=== PATIENT | female | born 1985 | race Caucasian/White ===

== ENCOUNTER 2018-03-20 10:38 | Inpatient (IN) | payer OTHER ==
[2018-03-20 11:39] VITALS: BMI 45.1
[2018-03-20 12:01] LABS: RETICULOCYTES 1.86 % (0.5-1.5)
[2018-03-20 12:02] LABS: BASO % 0.5 % (0-2.0); EOS % 1.4 % (0-4.5); HEMATOCRIT 42.4 % (32.4-45.2); HEMOGLOBIN 13.9 GM/dL (10.7-15.3); LYMPH % 25.2 % (8-40); MCH 27.4 pg (25.7-33.7); MCHC 32.9 g/dl (32.0-36.0); MEAN CELL VOLUME 83.4 fl (80-96); MEAN PLT VOLUME 11.1 fl (7.5-11.1); MONO % 8.6 % (3.8-10.2); NEUT % 64.3 % (42.8-82.8); PLATELET COUNT 173 K/MM3 (134-434); RBC 5.08 M/mm3 (3.60-5.2); RDW 14.7 % (11.6-15.6); WHITE BLOOD COUNT 10.7 K/mm3 (4.0-10.0)
[2018-03-20] MEDS ORDERED: SODIUM PHOSPHATE/NA BIPHOS 133 ML ENEMA PR ONE (12:06)
[2018-03-20] MEDS ORDERED: AMPICILLIN - 2 GM in SODIUM CHLORIDE 100 ML IVPB ONE ×2 (12:09→12:13)
[2018-03-20 12:11] LABS: INR 0.91 (0.82-1.09); PROTHROMBIN TIME (PATIENT) 10.3 SEC (9.7-13.0)
[2018-03-20 12:14] LABS: ACTIVATED PTT 27.8 SECONDS (26.9-34.4)
[2018-03-20] MEDS ORDERED: ELECTROLYTE-148 SOLN 1,000 ML IV SCH (12:15)
[2018-03-20 12:18] LABS: ANION GAP 9 (8-16); CHLORIDE 108 mmol/L (98-107); CO2 22 mmol/L (21-32); CREATININE 0.6 mg/dL (0.55-1.02); GAMMA GLUTAMYL TRANSPEPTIDASE 17 U/L (5-85); GLUCOSE,RANDOM 71 mg/dL (74-106); POTASSIUM 4.4 mmol/L (3.5-5.1); SGOT/AST 26 U/L (15-37); SGPT/ALT 42 U/L (12-78); SODIUM 139 mmol/L (136-145); URIC ACID 4.9 mg/dL (2.6-7.2)
[2018-03-20 12:24] LABS: URINE APPEARANCE CLEAR; URINE BILIRUBIN NEGATIVE (<2.0 mg/dL); URINE COLOR LTYELLOW; URINE GLUCOSE (UA) NEGATIVE (NEGATIVE); URINE KETONE NEGATIVE (NEGATIVE); URINE LEUK ESTERASE TRACE (NEGATIVE); URINE NITRITE NEGATIVE (NEGATIVE); URINE PROTEIN NEGATIVE (NEGATIVE); URINE UROBILINOGEN NEGATIVE mg/dL (0.2-1.0)
[2018-03-20] MEDS ORDERED: DINOPROSTONE 10 MG VAGINAL SUPPOSITORY VG ONE (12:30)
[2018-03-20 12:37] LABS: EPI CELLS RARE /HPF (FEW)
--- NOTE | 2018-03-20 12:39 | HP ---
Past Medical History - Primary Care Physician PCP:: Millie Matt - Admission Chief Complaint: 32 yrs , 37 weeks iup , gdm diet controlled with high BP , possible preclempsia is admitted for delivery as per recommndation from [facility]. 03/20/18 Sono 37 weeks GET 11.0, BPP 8/8. BP recorded in his office 170/ 108 & 154/105 , History of Present Illness: PNC at , [facility] Wt gain 15 lbs work up : 08/26/17 Apos, Rpr nr, Hbsag neg, Rubella pos, Quantiferon neg , , Hiv neg , gc/ct neg , h/h 12.8/38.0, plt 215 urine culture >100,000 gbs pos, treated with po Ampicillin pap LGSIl/ , followed by colposcopy , gc/ct neg 11/2107 base line 24 hr urine protein 105, uric acid 2.8 mg . AFP neg 01/27/18 1 hr gtt 140, Quantiferon neg, Rpr nr, 02/06/18 3 hr Gtt 100/232/206/74 03/11/18 gc/ct neg, GBS pos, , Hiv nr, cbc h/h 14.1/42.7 plt 177 BP are recorded at 12 wks , subsequently 163/100, 157/79 , 166/92. last 2 weeks BP are high diastolic 160/102, , 03/18/18 urine protein 2+ , she was placed on po Labetalol 100 mg bid today in [facility] off 170/106 , pt is asymptomatic for headache, blurred vision , epigastric pain she submitted 24 hr urine proten . 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 No: Seizure Cardiovascular: Yes: HTN (possible chr HTN , HTN noted in 1st trimester) Pulmonary: Yes: Asthma (in childhood, none for last 10 years . no meds) Gastrointestinal: Yes: Constipation. No: Gastritis, GERD Hepatobiliary: No: Cholelithiasis Renal/: Yes: UTI (treated during pregn with ampicillin , GBS bacteriuria pos) ...: 2 ...Para: 1 (02/28/2012 39.3 weeks , 7'3"Induction due to preclempsia at [facility]) ...Term: 1 ...LMP: 05/31/17 ... Weeks Gestation by Dates: 37 ...EDC by Dates: 04/10/18 ...EDC by Sono: 04/10/18 Heme/Onc: No: Anemia Infectious Disease: Yes: STD's (past h/o chlamydia treated). No: AIDS, HIV, Tuberculosis Endocrine: Yes: Other (h/o GDM current pregn diet controlled). No: Diabetes Mellitus, Hyperthyroidism, Hypothyroidism - Past Surgical History Past Surgical History: Yes: None Hx Myomectomy: No Hx Transabdominal Cerclage: No - Smoking History Smoking history: Never smoked Have you smoked in the past 12 months: No - Alcohol/Substance Use Hx Alcohol Use: No Home Medications - Allergies Allergies/Adverse Reactions: Allergies Allergy/AdvReac Type Severity Reaction Status Date / Time No Known Allergies Allergy Verified 03/15/18 16:33 - Home Medications Home Medications: Ambulatory Orders Pnv No.95/Ferrous Fum/Folic AC [ Vitamin Tablet] 1 each PO DAILY Labetalol HCl [Normodyne -] 100 mg PO BID #21 tablet 03/12/18 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 - Maternity Vital Signs: Vital Signs Temperature 98.2 F 03/20/18 11:26 Pulse Rate 79 03/20/18 11:26 Respiratory Rate 20 03/20/18 11:26 Blood Pressure 143/97 03/20/18 11:26 O2 Sat by Pulse Oximetry (%) Selected Entries 03/20/18 03/20/18 11:26 13:00 Temperature 98.6 F Pulse Rate 74 Blood Pressure 156/86 Weight 255 lb Constitutional: Yes: Well Nourished, Obese Eyes: Yes: WNL HENT: Yes: WNL, Normocephalic Neck: Yes: WNL Cardiovascular: Yes: WNL Lungs: Clear to auscultation Breast(s): Yes: WNL. No: Mass - Abdominal Exam/OB Fundal Height: 36 Number of Fetuses: Single Presentation: Vertex Contractions: No Monitor Mode: External Heart Rate (range): 150 Heart Rate Location: Midline Category: I Accelerations: Uniform Decelerations: None - Vaginal Exam/OB Vaginal Bleediing: No Dilatation (cm): 2 Effacement (%): 60 Amniotic Membrane Status: Intact Presentation: Vertex/Position Station: -3 - 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 Musculoskeletal: Yes: WNL Extremities: Yes: WNL, Internal Rotation. No: Calf Tenderness Edema: LLE: 1+, RLE: 1+ Deep Tendon Reflex Grade: Normal +2 ...Motor Strength: WNL Psychiatric: Yes: WNL, Alert - Labs Lab Results: CBC, BMP 03/20/18 11:35 03/20/18 11:35 Laboratory Tests 03/20/18 03/20/18 03/20/18 11:15 11:35 11:35 WBC Hgb Hct Plt Count 183 Neutrophils % Lymphocytes % PT with INR INR PTT (Actin FS) Sodium 139 Potassium 4.4 Chloride 108 H Carbon Dioxide 22 BUN 13 Creatinine Pending POC Glucometer Random Glucose 71 L Uric Acid 4.9 GGT 17 D AST 26 ALT 42 Urine Protein 03/20/18 03/20/18 03/20/18 11:35 11:35 11:45 WBC 10.7 H Hgb 13.9 Hct 42.4 Plt Count Neutrophils % 64.3 Lymphocytes % 25.2 PT with INR 10.30 INR 0.91 PTT (Actin FS) 27.8 Sodium Potassium Chloride Carbon Dioxide BUN Creatinine POC Glucometer Random Glucose Uric Acid GGT AST ALT Urine Protein Negative 03/20/18 12:00 WBC Hgb Hct Plt Count Neutrophils % Lymphocytes % PT with INR INR PTT (Actin FS) Sodium Potassium Chloride Carbon Dioxide BUN Creatinine POC Glucometer 68 Random Glucose Uric Acid GGT AST ALT Urine Protein Laboratory Tests 03/20/18 03/20/18 03/20/18 11:15 11:35 12:40 Urine Total Volume 600 Creatinine Clearance 134 RPR Titer Nonreactive Blood Type A POSITIVE Hemorrhage Risk Assessment - Risk Factors Medium Risk Factors: Yes: Obesity (BMI >40) Risk Score: 1 Risk Level: Medium Risk Problem List - Problems (1) 37 weeks gestation of Code(s): Z3A.37 - 37 WEEKS GESTATION OF (2) Chronic hypertension affecting Code(s): O10.919 - UNSP PRE-EXISTING HTN COMP , UNSP TRIMESTER (3) Diet controlled gestational diabetes mellitus (GDM) in third trimester Code(s): O24.410 - GESTATIONAL DIABETES MELLITUS IN , DIET CONTROLLED (4) Morbid obesity with BMI of 45.0-49.9, adult Code(s): E66.01 - MORBID (SEVERE) OBESITY DUE TO EXCESS CALORIES; Z68.42 - BODY MASS INDEX (BMI) 45.0-49.9, ADULT Assessment/Plan 32 yrs , 37 weeks , with ac exacerbation of BP , on chr HTN , on po labetalol , suspect preclempsia Plan cervidil induction of labor started at 11.55AM trial vaginal delivery bgm monitoring q 6h bp on po labetalol 24 hr urine protein pending gbs prophylaxis with IV Ampiciilin
[2018-03-20 12:50] LABS: BLOOD UREA NITROGEN 13 mg/dL (7-18)
[2018-03-20] MEDS ORDERED: LABETALOL HCL 200 MG TABLET (FP) PO PRN (13:21)
[2018-03-20] MEDS ORDERED: LABETALOL HCL 200 MG TABLET (FP) PO SCH (14:07)
[2018-03-20 14:19] LABS: CREATININE 0.6 mg/dL (0.55-1.02)
[2018-03-20] MEDS ORDERED: AMPICILLIN SODIUM 2 GM VIAL ONE (14:23)
[2018-03-20] MEDS ORDERED: AMPICILLIN - 1 GM in SODIUM CHLORIDE 100 ML IVPB SCH (19:00)
[2018-03-20] MEDS: LABETALOL HCL 200 MG TABLET (FP) PO SCH (19:20)
[2018-03-20] MEDS ORDERED: LABETALOL HCL 200 MG TABLET (FP) ONE (19:21)
[2018-03-20] MEDS ORDERED: BUTORPHANOL TARTRATE 1 MG/ML VIAL ONE ×2 (19:29)
[2018-03-20] MEDS ORDERED: BUTORPHANOL TARTRATE 1 MG/ML VIAL IVPUSH ONE (19:32)
[2018-03-20] MEDS ORDERED: PROMETHAZINE HCL 25 MG/1 ML VIAL IVPB ONE (19:32)
--- NOTE | 2018-03-20 19:37 | PN ---
Progress Note, Labor Vaginal Exam #1 Labor Exam Date: 03/20/18 Labor Exam Time: 19:30 Heart Rate (range): 130 Dilatation: 7 Effacement (%): 100 Amniotic Membrane Status: Intact Presentation: Vertex/Position (memb bulging , pp high unable to feel) Station: -3 Remarks: uc q2-4 min fhr 140, cat-1 rx stadol2 mg + phenrgan 25 mg iv stat Selected Entries 03/20/18 03/20/18 03/20/18 14:00 15:00 16:00 Temperature Pulse Rate Blood Pressure 161/97 136/90 153/88 03/20/18 03/20/18 03/20/18 17:00 18:00 19:00 Temperature 98.3 F Pulse Rate 72 74 71 Blood Pressure 138/84 140/88 158/95 bgm 85 after lunch Vaginal Exam #2 Labor Exam Date: 03/20/18 Labor Exam Time: 19:52 Heart Rate (range): 120 Dilatation: 10 Effacement (%): 100 Amniotic Membrane Status: Ruptured (AROM clear, large amount) Presentation: [place] Breech Station: -2 Remarks: pt pushing 19.40 hr fully dilated, , cervidil removed by RN
[2018-03-20] MEDS ORDERED: PROMETHAZINE HCL 25 MG/1 ML VIAL ONE (19:38)
[2018-03-20] MEDS ORDERED: OXYTOCIN 20 UNITS in 0.9% NS 20 UNIT/1,000 ML INFUS.BAG IV ONE ×2 (19:48→21:23)
[2018-03-20] MEDS ORDERED: LIDOCAINE HCL 1% PRESERVATIVE FREE - 30ML VIAL ONE (19:48)
[2018-03-20] MEDS: OXYTOCIN 20 UNITS in 0.9% NS 20 UNIT/1,000 ML INFUS.BAG IV SCH ×2 (19:55→21:30)
[2018-03-20] MEDS ORDERED: METHYLERGONOVINE MALEATE 0.2 MG/1 ML AMP IM PRN (20:04)
[2018-03-20] MEDS ORDERED: IBUPROFEN 600 MG TABLET (FP) PO PRN (20:04)
[2018-03-20] MEDS ORDERED: BENZOCAINE 28 GM HEMORRHOIDAL OINTMENT TP PRN (20:04)
[2018-03-20] MEDS ORDERED: BENZOCAINE 20% 57 GM BOTTLE TP PRN (20:04)
[2018-03-20] MEDS ORDERED: oxyCODONE HCL 5 MG TABLET PO PRN (20:04)
[2018-03-20] MEDS ORDERED: WITCH HAZEL 50% (TUCKS) 40 PAD/JAR PAD TP PRN (20:04)
[2018-03-20] MEDS ORDERED: BISACODYL 10 MG SUPP.RECT RC PRN (20:04)
--- NOTE | 2018-03-20 20:29 | PN ---
Delivery - Delivery Vaginal Delivery: Breech (luisito breech , RST delivered followed by body , then ant arm , followed by posterior arm head delievered , cord around neck x1 . baby girl. cord blood , collected, cord segment sent for cord gas) Episiotomy/Laceration: None EBL (cc): 250 Delivery, Single - Stages of Labor Date 1st Stage Initiatied: 03/20/18 Time 1st Stage Initiated: 15:00 Date 2nd Stage Initiated: 03/20/18 Time 2nd Stage Initiated: 19:40 Date of Delivery: 03/20/18 Time of Delivery: 19:52 Date Placenta Delivered: 03/20/18 Time Placenta Delivered: 19:53 Placenta: Yes: Spontaneous, Uterine Exploration - Condition of Infant Infant Gender: Female Weight: 5 lb 4 oz Position: Right, SA (Lasha barajas, delivery in rST position , cord around neck x1) Total Hours ROM (Hrs/Mins): 8 min - 1 Minute Total Score: 8 5 Minutes Total Score: 9 - Feeding Plan Initial Plan: Elected not to breastfeed exclusively throughout hospitalization Remarks - Remarks Remarks: 32 yrs , 37 weeks chr htn, ac exacerbation, suspected l preclempsia . GBS pos , RX IV ampicillin x 2 doses induction of labor with cervidil 03/20/18 one dose of iv stadol + phenrgan for labor analgesia , Intrapartum course uneventful BP manage with po labetlol 200 mg q 6h GDM diet controlled, , monitor BGM
[2018-03-20 20:49] LABS: VENOUS PC02 49.2 mmHg (38-52); VENOUS PH 7.29 (7.32-7.42)
[2018-03-20 20:52] LABS: VENOUS PO2 16.6 mmHg (28-48)
[2018-03-21] MEDS: LABETALOL HCL 200 MG TABLET (FP) PO SCH ×3 (01:38→13:29)
--- NOTE | 2018-03-21 06:39 | PN ---
Progress Note (short form) - Note Progress Note: ppd 1 doing well, no c/o ,no excess vaginal bleeding CBC, BMP 03/20/18 11:35 03/20/18 11:35 Last Vital Signs Temp Pulse Resp BP Pulse Ox 98.2 F 77 18 145/82 03/21/18 06:00 03/21/18 06:00 03/21/18 06:00 03/21/18 06:00 abdomen soft, no distension, no cva uterus firm, non tender lochia mild no calf tenderness plan ambulate, cbc
[2018-03-21] MEDS: FERROUS SO4 325 MG TABLET (FP) PO SCH ×2 (07:31→17:03)
[2018-03-21] MEDS: ACETAMINOPHEN 325 MG TABLET (FP) PO PRN ×2 (07:34→20:15)
[2018-03-21 07:45] LABS: BASO % 0.5 % (0-2.0); EOS % 0.6 % (0-4.5); HEMATOCRIT 40.1 % (32.4-45.2); HEMOGLOBIN 13.2 GM/dL (10.7-15.3); LYMPH % 22.5 % (8-40); MCH 27.4 pg (25.7-33.7); MCHC 32.8 g/dl (32.0-36.0); MEAN CELL VOLUME 83.5 fl (80-96); MEAN PLT VOLUME 10.7 fl (7.5-11.1); MONO % 7.4 % (3.8-10.2); PLATELET COUNT 153 K/MM3 (134-434); RDW 14.4 % (11.6-15.6); WHITE BLOOD COUNT 12.3 K/mm3 (4.0-10.0)
[2018-03-21] MEDS: PRENATAL VITAMINS W/ FOLIC ACID TABLET (FP) PO SCH (09:22)
--- NOTE | 2018-03-21 14:30 | CONSULT ---
Consult - text type - Consultation Consultation Note: Renal consult for hypertension This is a 32 year old woman who presented at 37 weeks gestation with elevated BP fom OB clinic now s/p vaginal dilivery with hypertension. Pt was on Labetalol BID for 1 week prior to this admission. No CELIS, Chest pain, SOB, N/ V. Pt was told that she had preeclampsia in the past. Mother has CHF and at age 55. Gained about 15 lbs during . PMhx: as above Allergies: NKDA Family hx: Mother had CHF, at age 55 Social Hx: No T/A/D ROS: as per HPI Home Medications Medication Instructions Recorded Pnv No.95/Ferrous Fum/Folic AC 1 each PO DAILY 03/11/18 [ Vitamin Tablet] Labetalol HCl [Normodyne -] 100 mg PO BID #21 tablet 03/12/18 Vital Signs Temperature 99.2 F 03/21/18 13:25 Pulse Rate 72 03/21/18 13:25 Respiratory Rate 20 03/21/18 13:25 Blood Pressure 141/79 03/21/18 13:25 O2 Sat by Pulse Oximetry (%) Intake & Output 03/18/18 03/19/18 03/20/18 03/21/18 23:59 23:59 23:59 23:59 Intake Total 600 Balance 600 Weight 115.666 kg NAD No JVD RRR No LE edema CBC, BMP 03/21/18 07:10 03/20/18 11:35 Current Medications Acetaminophen (Tylenol -) 650 mg PO Q3H PRN PRN Reason: PAIN LEVEL 1-5 Last Admin: 03/21/18 07:34 Dose: 650 mg Benzocaine (Americaine 20% [place] -) 1 spray TP PRN PRN PRN Reason: PAIN Benzocaine (Americaine Ointment -) 1 applic TP PRN PRN PRN Reason: PAIN Bisacodyl (Dulcolax Suppository -) 10 mg RC PRN PRN PRN Reason: CONSTIPATION Ferrous Sulfate (Feosol -) 325 mg PO BIDWM [facility] Last Admin: 03/21/18 07:31 Dose: 325 mg Oxytocin/Sodium Chloride (Normal Saline+20 Units Oxytocin -) 20 unit in 1,000 mls @ 125 mls/hr IV ASDIR [facility] Last Admin: 05/31/18 21:30 Dose: 125 mls/hr Labetalol HCl (Normodyne -) 200 mg PO Q6H [facility] Last Admin: 03/21/18 13:29 Dose: 200 mg Methylergonovine Maleate (Methergine Injection -) 0.2 mg IM Q4H PRN PRN Reason: EXCESSIVE BLEEDING (L&D) Oxycodone HCl (Roxicodone -) 5 mg PO Q6H PRN PRN Reason: PAIN LEVEL 7 - 10 Multivit/Folic Acid/Iron ( Vitamins (Sjr) -) 1 tab PO DAILY [facility] Last Admin: 03/21/18 09:22 Dose: 1 tab Senna/Docusate Sodium (Pericolace -) 2 tablet PO HS PRN PRN Reason: CONSTIPATION Witch Mignon/Glycerin (Tucks Pads -) 1 pad TP PRN PRN PRN Reason: PAIN 32 year old woman who presented at 37 weeks gestation with elevated BP fom OB clinic now s/p vaginal dilivery with hypertension. Pt was on Labetalol BID for 1 week prior to this admission. # Hypertension #Preeclampsia UA showed no protein but 24 hour urine protein was collected results as pending no LFT or platelet abnormalities to indicate HELLP syndrome Low salt diet, avoid nsaids for pain control Continue Labetalol 200mg Q6h PRN for SBP > 140 or DBP > 90 pain control thank you Will follow Rick Johnson DO
[2018-03-21] MEDS: LABETALOL HCL 200 MG TABLET (FP) PO PRN (20:15)
[2018-03-21] MEDS: OXYTOCIN 20 UNITS in 0.9% NS 20 UNIT/1,000 ML INFUS.BAG IV SCH (20:16)
[2018-03-21] MEDS ORDERED: SENNOSIDES/DOCUSATE COMBO (SENNA PLUS) TABLET (UD) PO PRN (22:00)
[2018-03-22] MEDS: ACETAMINOPHEN 325 MG TABLET (FP) PO PRN (03:49)
[2018-03-22] MEDS: LABETALOL HCL 200 MG TABLET (FP) PO PRN ×2 (05:44→12:19)
[2018-03-22] MEDS: FERROUS SO4 325 MG TABLET (FP) PO SCH (08:00)
--- NOTE | 2018-03-22 08:04 | DS ---
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 Vital Signs: Vital Signs Temperature 98.6 F 03/21/18 20:15 Pulse Rate 63 03/22/18 05:45 Respiratory Rate 18 03/22/18 05:45 Blood Pressure 143/91 03/22/18 05:45 O2 Sat by Pulse Oximetry (%) Constitutional: Yes: Well Nourished Eyes: Yes: Conjunctiva Clear HENT: Yes: Atraumatic Neck: Yes: Supple Cardiovascular: Yes: Regular Rate and Rhythm Respiratory: Yes: Regular Gastrointestinal: Yes: Normal Bowel Sounds Pelvis: Yes: WNL External Genitalia: Yes: Normal Vaginal Exam: Yes: Normal Cervix: Yes: Normal Uterus: Yes: Firm ....Post : Yes: Uterus firm, Moderate lochia serosa Breast(s): Yes: WNL Musculoskeletal: Yes: WNL Extremities: Yes: WNL Neurological: Yes: Alert, Oriented ...Motor Strength: WNL Psychiatric: Yes: Alert, Oriented Labs: CBC, BMP 03/21/18 07:10 03/20/18 11:35 Delivery - Delivery Vaginal Delivery: Breech (luisito breech , RST delivered followed by body , then ant arm , followed by posterior arm head delievered , cord around neck x1 . baby girl. 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: No Infant Gender: Female Weight: 5 lb 4 oz Position: Right, SA (Lasha barajas, delivery in rST position , cord around neck x1) Total Hours ROM (Hrs/Mins): 8 min - 1 Minute Total Score: 8 5 Minutes Total Score: 9 - [place] Feeding Plan Initial Plan: Elected not to breastfeed exclusively throughout hospitalization Discharge Summary Reason For Visit: LABOR Current Active Problems 37 weeks gestation of (Acute) Chronic hypertension affecting (Acute) Diet controlled gestational diabetes mellitus (GDM) in third trimester (Acute) Morbid obesity with BMI of 45.0-49.9, adult (Acute) Procedures: Principal: Normal vaginal delivery Hospital Course: care Customer Facilities Supervisor consulted due to chronic hypertension Patient has been on Labetalol during hospital stay Condition: Stable - Instructions Diet, Activity, Other Instructions: Post Instructions DIET: Continue good diet high in protein, calcium, and iron rich foods. Drink at least eight (8) glasses of water daily in addition to other fluids. ___ lo salt diet ___ LoCarb/Low Calorie Diet ___ Diabetic Diet MEDICATIONS: Continue vitamins and iron as previously directed. Motrin and Tylenol may be taken for minor discomfort. ACTIVITY: Mild to moderate exercise may be started in two (2) weeks. Take frequent rest periods. Resume normal activity after six (6) week check up. WOUND CARE OF OPERATIVE SITE: Continue use of perineal bottle until vaginal discharge stops. Keep area clean. Shower daily. Keep abdominal wound dry. Report any drainage or redness to physician. Tub baths, tampons and douches are not permitted for [address] Breast feeding & or Bottle feeding BREAST CARE: (For those that are not breast feeding): If engorgement occurs: Wear tight fitting bra. Take Tylenol or Motrin for pain. Apply cold packs (ice in bags to each breast ) FAMILY PLANNING: There are many control alternatives to pursue and they should be discussed at your first office visit. You may resume sexual activity after your six (6) week check up. (Remember, breast feeding is not a contraceptive) NEXT PHYSICIAN APPOINTMENT: Be certain to call for a six (6) week appointment, unless otherwise directed. check bgm twicw a week fasting oce & post prandial after 3 months do 75 gm GTT with your PCP Follow for Hypertension with Dr Johnson [facility] or got to Emergency Dept if you have any of the following: Heavy vaginal bleeding Painful urination Leg pain Unusual odor noted to vaginal bleeding High fever Red streaking noted on breast Referrals: Millie Matt MD [Staff Physician] - Disposition: HOME - Home Medications Comprehensive Discharge Medication List: Ambulatory Orders Pnv No.95/Ferrous Fum/Folic AC [ Vitamin Tablet] 1 each PO DAILY Labetalol HCl [Normodyne -] 100 mg PO BID #21 tablet 03/12/18 Acetaminophen [Tylenol .Regular Strength -] 650 mg PO Q3H PRN tablet 03/21/18 Vitamins (Sjr) - 1 tab PO DAILY tablet 03/21/18
[2018-03-22 08:33] VITALS: BP 152/92; PULSE 65; TEMP 97.9
[2018-03-22] MEDS: PRENATAL VITAMINS W/ FOLIC ACID TABLET (FP) PO SCH (09:28)
--- NOTE | 2018-03-22 11:28 | PN ---
Progress Note (short form) - Note Progress Note: Renal follow up for hypertension Pt seen and examined at the bedside no acute complaints no CELIS, CP, SOB, Abd pain required labetalol last night and this am Vital Signs Temperature 97.9 F 03/22/18 08:32 Pulse Rate 65 03/22/18 08:32 Respiratory Rate 18 03/22/18 08:32 Blood Pressure 152/92 03/22/18 08:32 O2 Sat by Pulse Oximetry (%) Intake & Output 03/19/18 03/20/18 03/21/18 03/22/18 23:59 23:59 23:59 23:59 Intake Total 600 Balance 600 Weight 115.666 kg NAD Trace LE edema CBC, BMP 03/21/18 07:10 03/20/18 11:35 Current Medications Acetaminophen (Tylenol -) 650 mg PO Q3H PRN PRN Reason: PAIN LEVEL 1-5 Last Admin: 03/22/18 03:49 Dose: 650 mg Benzocaine (Americaine 20% [place] -) 1 spray TP PRN PRN PRN Reason: PAIN Benzocaine (Americaine Ointment -) 1 applic TP PRN PRN PRN Reason: PAIN Bisacodyl (Dulcolax Suppository -) 10 mg RC PRN PRN PRN Reason: CONSTIPATION Ferrous Sulfate (Feosol -) 325 mg PO BIDWM [facility] Last Admin: 03/22/18 08:00 Dose: 325 mg Labetalol HCl (Normodyne -) 200 mg PO Q6H PRN PRN Reason: HYPERTENSION Last Admin: 03/22/18 05:44 Dose: 200 mg Methylergonovine Maleate (Methergine Injection -) 0.2 mg IM Q4H PRN PRN Reason: EXCESSIVE BLEEDING (L&D) Oxycodone HCl (Roxicodone -) 5 mg PO Q6H PRN PRN Reason: PAIN LEVEL 7 - 10 Multivit/Folic Acid/Iron ( Vitamins (Sjr) -) 1 tab PO DAILY [facility] Last Admin: 03/22/18 09:28 Dose: 1 tab Senna/Docusate Sodium (Pericolace -) 2 tablet PO HS PRN PRN Reason: CONSTIPATION Last Admin: 03/21/18 20:18 Dose: 2 tablet Witch Mignon/Glycerin (Tucks Pads -) 1 pad TP PRN PRN PRN Reason: PAIN 32 year old woman who presented at 37 weeks gestation with elevated BP fom OB clinic now s/p vaginal dilivery with hypertension. Pt was on Labetalol BID for 1 week prior to this admission. # Hypertension #Preeclampsia 24 hour urine collection results pending BP moderately controlled continue Labetalol 200mg Q6h Q12 low salt diet at home to follow up in 2-3 weeks as outpatient for BP monitoring Rick Johnson DO
== END 2018-03-22 13:10 | disposition home or self-care (01) | DRG 560 ==
LOC: JDEL 10:38 → JLDR 11:15 → J3W 21:28
PROVIDERS: ADMIT Obstetrics & Gynecology; ATTEND Obstetrics & Gynecology
PROC: 10E0XZZ Delivery of Products of Conception, External Approach (ICD-10-PCS; principal; 2018-03-20)
DX: O16.4 Unspecified maternal hypertension, complicating childbirth (principal); O24.420 Gestational diabetes mellitus in childbirth, diet controlled; O99.214 Obesity complicating childbirth; E66.01 Morbid (severe) obesity due to excess calories; Z68.42 Body mass index [BMI] 45.0-49.9, adult; O69.81X0 Labor and delivery complicated by cord around neck, without compression, not applicable or unspecified; O32.1XX0 Maternal care for breech presentation, not applicable or unspecified; O14.94 Unspecified pre-eclampsia, complicating childbirth; Z3A.37 37 weeks gestation of pregnancy; Z37.0 Single live birth
CPT/HCPCS: 36415; 59409; 80048; 81003; 81015; 82575; 82803; 82962; 82977; 83010; 84156; 84166; 84450; 84460; 84550; 85025; 85032; 85044; 85610; 85730; 86593; 86850; 86900; 86901

== ENCOUNTER 2019-06-12 21:17 | Emergency (ER) | payer SELFPAY ==
[2019-06-12 21:26] VITALS: BMI 40.7
[2019-06-12] MEDS ORDERED: ACETAMINOPHEN 325 MG TABLET (FP) PO ONE (21:53)
[2019-06-12] MEDS ORDERED: ACETAMINOPHEN 325 MG TABLET (FP) ONE (21:58)
--- NOTE | 2019-06-12 22:05 | PDOC ---
History of Present Illness - General Chief Complaint: Headache Stated Complaint: HEADACHE Time Seen by Provider: 06/12/19 21:43 History Source: Patient Exam Limitations: Clinical Condition - History of Present Illness Initial Comments: 06/12/19 22:10 Patient with no significant past medical history present with complaint of 3 day history of persistent dry cough, nasal congestion, postnasal drip and runny nose. Patient reported headache to of head and heaviness behind bilateral eyes upon wake this morning. 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 Denies weakness or feeling of imbalance. Denies any other symptoms Timing/Duration: reports: other (3 days) Past History - Past Medical History Allergies/Adverse Reactions: Allergies Allergy/AdvReac Type Severity Reaction Status Date / Time No Known Allergies Allergy Verified 03/15/18 16:33 Home Medications: Ambulatory Orders Pnv No.95/Ferrous Fum/Folic AC [ Vitamin Tablet] 1 each PO DAILY Labetalol HCl [Normodyne -] 100 mg PO BID #21 tablet 03/12/18 Acetaminophen [Tylenol .Regular Strength -] 650 mg PO Q3H PRN tablet 03/21/18 Vitamins (Sjr) - 1 tab PO DAILY tablet 03/21/18 Azithromycin [Zithromax Tri-John (3 DAYS) -] 500 mg PO DAILY #3 tablet 06/12/19 Benzonatate [Tessalon Pearls -] 100 mg PO TID PRN #21 capsule 06/12/19 Ipratropium [place] 2 spray NS BID PRN 5 Days #1 spray 06/12/19 Montelukast Sodium [Singulair] 10 mg PO DAILY #7 tablet 06/12/19 Asthma: No Cancer: No Cardiac Disorders: No Diabetes: Yes HTN: Yes Seizures: No Thyroid Disease: No - Suicide/Smoking/Psychosocial Hx Smoking History: Never smoked Have you smoked in the past 12 months: No Hx Alcohol Use: No Drug/Substance Use Hx: No Hx Substance Use Treatment: No Neuro Specific PMHX - Complaint Specific PMHX Glaucoma: No Herniated Disk: No Laminectomy: No Migraine: No Multiple Sclerosis: No Neuropathy: No TIA: No Review of Systems - Review of Systems Able to Perform ROS?: Yes Is the patient limited Wolof proficient: No Constitutional: No: Chills, Fever, Malaise, Weakness HEENTM: Yes: Symptoms Reported, See HPI, Recent change in vision (pressure being eyes), Nose Congestion. No: Eye Pain, Blurred Vision, Tearing, Double Vision, Cataracts, Ear Pain, Ocular Prothesis, Ear Discharge, Nose Pain, Tinnitus, Nose Bleeding, Hearing Loss, Throat Pain, Throat Swelling, Mouth Pain , Dental Problems, Difficulty Swallowing, Mouth Swelling, Other Respiratory: Yes: Symptoms reported, See HPI, Cough. No: Orthopnea, Shortness of Breath, SOB with Exertion, SOB at Rest, Stridor, Wheezing, Productive cough, Hemoptysis, Other Cardiac (ROS): No: Symptoms Reported, See HPI, Chest Pain, Edema, Irregular Heart Rate, Lightheadedness, Palpitations, Syncope, Chest Tightness, Other ABD/GI: No: Nausea, Vomiting Musculoskeletal: No: Symptoms Reported Integumentary: No: Symptoms Reported Neurological: Yes: Symptoms reported, See HPI, Headache (frontal headache). No : Numbness, Paresthesia, Pre-Existing Deficit, Weakness, Unsteady Gait, Ataxia, Dizziness All Other Systems: Reviewed and Negative *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 - Vital Signs Last Vital Signs Temp Pulse Resp BP Pulse Ox 98.1 F 85 20 140/85 99 06/12/19 21:22 06/12/19 21:22 06/12/19 21:22 06/12/19 21:22 06/12/19 21:22 - 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 Comments: 06/12/19 22:08 GENERAL: Well developed, well nourished. Awake and alert. No acute distress. HEENT: Moderate tenderness to bilateral maxillary and frontal sinuses. Bilateral nasal congestion. Normocephalic, atraumatic. PERRLA, EOMI. No conjunctival pallor. Sclera are non-icteric. Moist mucous membranes. Oropharynx is clear. NECK: Supple. Full ROM. No JVD. Carotid pulses 2+ and symmetric, without bruits. No thyromegaly. No lymphadenopathy. CARDIOVASCULAR: Regular rate and rhythm. No murmurs, rubs, or gallops. Distal pulses are 2+ and symmetric. PULMONARY: No evidence of respiratory distress. Lungs clear to auscultation bilaterally. No wheezing, rales or rhonchi. ABDOMINAL: Soft. Non-tender. Non-distended. No rebound or guarding. No organomegaly. Normoactive bowel sounds. MUSCULOSKELETAL Normal range of motion at all joints. No bony deformities or tenderness. SKIN: Warm and dry. Normal capillary refill. No rashes. NEUROLOGICAL: Alert, awake, appropriate. Cranial nerves 2-12 intact. No motor deficits in the in face, upper extremities and lower extremities. Normal speech. Toes are down-going bilaterally. Gait is normal without ataxia. PSYCHIATRIC: Cooperative. Good eye contact. Appropriate mood and affect. General Appearance: Yes: Nourished, Appropriately Dressed. No: Apparent Distress Medical Decision Making - Medical Decision Making 06/12/19 22:16 Patient with no significant past medical history present with complaint of 3 day history of persistent dry cough, nasal congestion, postnasal drip and runny nose. Patient reported headache to of head and heaviness behind bilateral eyes upon wake this morning. 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 Denies weakness or feeling of imbalance. Denies any other symptoms Clinical exam significant for moderate tenderness to bilateral maxillary and frontal sinus with nasal congestion bilateral otherwise unremarkable with normal neuro exam and normal cardio and lung exam. Symptoms likely sinusitis which URI versus less likely neurogenic symptoms. Patient with normal neuro exam and well-looking in no acute distress. Patient is stable for discharge on Tessalon Perles for cough and Atrovent nasal spray with Singulair for nasal congestion and sinusitis with strict follow-up. Patient advised to increase fluid intake. Patient is stable for discharge *DC/Admit/Observation/Transfer Diagnosis at time of Disposition: URI (upper respiratory infection) Qualifiers: URI type: unspecified URI Qualified Code(s): J06.9 - Acute upper respiratory infection, unspecified Sinusitis Qualifiers: Sinusitis location: frontal Chronicity: acute Recurrence: non-recurrent Qualified Code(s): J01.10 - Acute frontal sinusitis, unspecified - Discharge Dispostion Disposition: HOME Condition at time of disposition: Stable Decision to Admit order: No - Prescriptions Prescriptions: Azithromycin [Zithromax Tri-John (3 DAYS) -] 500 mg PO DAILY #3 tablet Benzonatate [Tessalon Pearls -] 100 mg PO TID PRN #21 capsule PRN Reason: Cough Ipratropium [place] 2 spray NS BID PRN 5 Days #1 spray PRN Reason: nasal congestion Montelukast Sodium [Singulair] 10 mg PO DAILY #7 tablet - Referrals Referrals: Román Jones [Primary Care Provider] - - Patient Instructions Printed Discharge Instructions: DI for Sinusitis, DI for Sinus Headache Additional Instructions: Take medications as prescribed. Increase fluid intake. Follow-up with primary care as needed - Post Discharge Activity
[2019-06-13 01:01] VITALS: PULSE 79; TEMP 98.9
[2019-06-13 01:06] VITALS: BP 138/60
== END 2019-06-12 22:09 | disposition home or self-care (01) ==
LOC: JER 21:17
DX: J01.10 Acute frontal sinusitis, unspecified (principal); J06.9 Acute upper respiratory infection, unspecified; I10 Essential (primary) hypertension; E11.9 Type 2 diabetes mellitus without complications
CPT/HCPCS: 99282-25

== ENCOUNTER 2024-09-15 10:55 | Inpatient (IN) | payer OTHER ==
[2024-09-15] MEDS ORDERED: ALBUTEROL SO4 2.5/IPRATROPIUM 0.5 INH SOL 3 ML VIAL.NEB. NEB ONE ×2 (12:00→12:20)
[2024-09-15] MEDS: ALBUTEROL SO4 2.5/IPRATROPIUM 0.5 INH SOL 3 ML VIAL.NEB. NEB SCH (12:16)
[2024-09-15] MEDS ORDERED: methylPREDNISolone NA SUCC 125 MG/2 ML VIAL ONE (12:39)
[2024-09-15] MEDS: methylPREDNISolone NA SUCC 125 MG/2 ML VIAL IVPUSH ONE (12:49)
[2024-09-15] MEDS ORDERED: ALBUTEROL SO4 0.083% IH SOL 2.5 MG/3 ML VIAL.NEB. NEB SCH (14:15)
[2024-09-15] MEDS: ALBUTEROL SO4 0.083% IH SOL 2.5 MG/3 ML VIAL.NEB. NEB SCH ×2 (14:20→20:05)
[2024-09-15] MEDS ORDERED: ALBUTEROL SO4 0.083% IH SOL 2.5 MG/3 ML VIAL.NEB. NEB PRN (17:21)
[2024-09-15] MEDS: LABETALOL HCL 200 MG TABLET (FP) PO SCH (23:30)
[2024-09-16 01:58] VITALS: BMI 39.6
[2024-09-16 08:39] LABS: BASO % 0.2 % (0-2.0); EOS % 0.1 % (0-4.5); HEMATOCRIT 35.8 % (32.4-45.2); HEMOGLOBIN 11.8 GM/dL (10.7-15.3); LYMPH % 12.5 % (8-40); MCH 27.8 pg (25.7-33.7); MEAN CELL VOLUME 84.1 fl (80-96); MEAN PLT VOLUME 10.5 fl (7.5-11.1); MONO % 5.7 % (3.8-10.2); NEUT % 81.5 % (42.8-82.8); PLATELET COUNT 194 10^3/uL (134-434); RBC 4.25 M/mm3 (3.60-5.2); WHITE BLOOD COUNT 13.9 K/mm3 (4.0-10.0)
[2024-09-16 09:00] LABS: POTASSIUM 3.6 mmol/L (3.5-5.1)
[2024-09-16 09:10] LABS: CALCIUM 8.9 mg/dL (8.5-10.1)
[2024-09-16 09:11] LABS: BLOOD UREA NITROGEN 9.5 mg/dL (7-18)
[2024-09-16] MEDS: PRENATAL VITAMINS W/ FOLIC ACID TABLET (FP) PO SCH (09:12)
[2024-09-16 09:14] LABS: CREATININE 0.4 mg/dL (0.55-1.3)
[2024-09-16] MEDS ORDERED: INSULIN ASPART SLIDING SCALE (NOVOLOG) 1 VIAL SQ SCH ×2 (10:00→11:00)
[2024-09-16] MEDS: INSULIN ASPART SLIDING SCALE (NOVOLOG) 1 VIAL SQ SCH ×3 (10:52→16:06)
[2024-09-16] MEDS: methylPREDNISolone NA SUCC 40 MG/1 ML VIAL IVPUSH SCH (14:54)
[2024-09-16] MEDS ORDERED: ALBUTEROL SO4 2.5/IPRATROPIUM 0.5 INH SOL 3 ML VIAL.NEB. NEB SCH (16:00)
[2024-09-16] MEDS: INSULIN (LEVEMIR) 100 UNITS/ML UNITS SQ SCH (21:40)
[2024-09-16] MEDS: BUDESONIDE/FORMETEROL FUMARATE 160/4.5 mcg INHALER IH SCH (21:44)
[2024-09-17] MEDS ORDERED: INSULIN (LEVEMIR) 100 UNITS/ML UNITS SQ SCH (07:34)
[2024-09-17] MEDS: INSULIN ASPART SLIDING SCALE (NOVOLOG) 1 VIAL SQ SCH ×2 (10:13→18:59)
[2024-09-17] MEDS: INSULIN (LEVEMIR) 100 UNITS/ML UNITS SQ SCH (21:52)
[2024-09-18] MEDS: ALBUTEROL SO4 2.5/IPRATROPIUM 0.5 INH SOL 3 ML VIAL.NEB. NEB PRN (07:55)
[2024-09-18] MEDS: NIFEdipine E.R. 30 MG TABLET PO SCH (10:13)
[2024-09-18] MEDS: INSULIN (NOVOLOG) ASPART 100 UNITS/ML 10ML VIAL SQ ONE (13:27)
[2024-09-18] MEDS: methylPREDNISolone NA SUCC 40 MG/1 ML VIAL IVPUSH SCH (15:32)
[2024-09-18] MEDS: INSULIN ASPART SLIDING SCALE (NOVOLOG) 1 VIAL SQ SCH (17:59)
[2024-09-18] MEDS: INSULIN (LEVEMIR) 100 UNITS/ML UNITS SQ SCH (21:23)
[2024-09-18] MEDS ORDERED: INSULIN (LEVEMIR) 100 UNITS/ML UNITS SQ SCH (22:00)
[2024-09-19] MEDS: INSULIN (LEVEMIR) 100 UNITS/ML UNITS SQ SCH (07:14)
[2024-09-19] MEDS: methylPREDNISolone NA SUCC 40 MG/1 ML VIAL IVPUSH SCH (21:09)
[2024-09-20] MEDS: INSULIN (LEVEMIR) 100 UNITS/ML UNITS SQ SCH (06:42)
[2024-09-20] MEDS: INSULIN ASPART SLIDING SCALE (NOVOLOG) 1 VIAL SQ SCH (09:56)
[2024-09-20] MEDS: INSULIN (NOVOLOG) ASPART 100 UNITS/ML 10ML VIAL SQ ONE ×2 (12:19→17:19)
[2024-09-21] MEDS ORDERED: INSULIN (LEVEMIR) 100 UNITS/ML UNITS SQ SCH ×2 (06:54→22:00)
[2024-09-21] MEDS: INSULIN (LEVEMIR) 100 UNITS/ML UNITS SQ ONE (08:48)
[2024-09-21] MEDS: INSULIN ASPART SLIDING SCALE (NOVOLOG) 1 VIAL SQ SCH ×2 (14:42→21:06)
[2024-09-21] MEDS: methylPREDNISolone NA SUCC 40 MG/1 ML VIAL IVPUSH SCH (15:12)
[2024-09-21] MEDS: INSULIN (LEVEMIR) 100 UNITS/ML UNITS SQ SCH (21:06)
[2024-09-22] MEDS: INSULIN (LEVEMIR) 100 UNITS/ML UNITS SQ ONE (07:42)
[2024-09-22] MEDS ORDERED: INSULIN (LEVEMIR) 100 UNITS/ML UNITS SQ ONE (07:47)
[2024-09-22 09:16] LABS: BASO % 0.2 % (0-2.0); HEMATOCRIT 42.3 % (32.4-45.2); HEMOGLOBIN 13.8 GM/dL (10.7-15.3); LYMPH % 9.1 % (8-40); MCH 27.5 pg (25.7-33.7); MCHC 32.6 g/dl (32.0-36.0); MEAN CELL VOLUME 84.2 fl (80-96); MEAN PLT VOLUME 10.1 fl (7.5-11.1); MONO % 2.8 % (3.8-10.2); NEUT % 87.9 % (42.8-82.8); PLATELET COUNT 270 10^3/uL (134-434); RBC 5.03 M/mm3 (3.60-5.2); RDW 13.5 % (11.6-15.6); WHITE BLOOD COUNT 19.5 K/mm3 (4.0-10.0)
[2024-09-22] MEDS: INSULIN ASPART SLIDING SCALE (NOVOLOG) 1 VIAL SQ SCH (10:54)
[2024-09-22] MEDS: ALBUTEROL SO4 2.5/IPRATROPIUM 0.5 INH SOL 3 ML VIAL.NEB. NEB SCH (13:50)
[2024-09-22] MEDS: INSULIN (LEVEMIR) 100 UNITS/ML UNITS SQ SCH (21:11)
[2024-09-23] MEDS: ALBUTEROL SO4 0.083% IH SOL 2.5 MG/3 ML VIAL.NEB. NEB PRN (02:39)
[2024-09-23] MEDS: INSULIN (LEVEMIR) 100 UNITS/ML UNITS SQ SCH (06:25)
[2024-09-23] MEDS: INSULIN ASPART SLIDING SCALE (NOVOLOG) 1 VIAL SQ SCH (06:25)
[2024-09-23] MEDS ORDERED: INSULIN ASPART SLIDING SCALE (NOVOLOG) 1 VIAL SQ ONE ×2 (11:06→17:59)
[2024-09-23 17:33] VITALS: RESP 18
[2024-09-24] MEDS: INSULIN ASPART SLIDING SCALE (NOVOLOG) 1 VIAL SQ SCH ×2 (06:29→11:22)
[2024-09-24 09:47] LABS: ALBUMIN 2.6 g/dl (3.4-5.0); BLOOD UREA NITROGEN 12.8 mg/dL (7-18); CALCIUM 9.5 mg/dL (8.5-10.1)
[2024-09-24 09:50] LABS: CREATININE 0.5 mg/dL (0.55-1.3)
[2024-09-24 09:52] LABS: BILIRUBIN,TOTAL 0.5 mg/dL (0.2-1)
[2024-09-24] MEDS: methylPREDNISolone NA SUCC 40 MG/1 ML VIAL IVPUSH SCH ×2 (16:34→20:42)
[2024-09-25] MEDS: predniSONE 20 MG TABLET (UD) PO SCH (09:35)
[2024-09-25] MEDS: ACETAMINOPHEN 500 MG TABLET (FP) PO PRN (09:50)
[2024-09-25 13:58] VITALS: BP 137/82; PULSE 98; TEMP 98.4
== END 2024-09-25 18:42 | disposition home or self-care (01) | DRG 566 ==
LOC: JERFT 10:55 → JERBED 14:14 → J5S 18:46 → OBSVTOIN 09-18 10:08
PROVIDERS: ADMIT Internal Medicine; ATTEND Internal Medicine
DX: O99.512 Diseases of the respiratory system complicating pregnancy, second trimester (principal); J45.901 Unspecified asthma with (acute) exacerbation; O24.410 Gestational diabetes mellitus in pregnancy, diet controlled; O13.2 Gestational [pregnancy-induced] hypertension without significant proteinuria, second trimester; O99.212 Obesity complicating pregnancy, second trimester; J02.9 Acute pharyngitis, unspecified; Z3A.26 26 weeks gestation of pregnancy
CPT/HCPCS: 0241U-QW; 36415; 80048; 80053; 82962; 83036; 85025; 87651; 93005; 93010; 94150; 94640; 97116-GP; 97161-GP; 99285-25; G0378

== ENCOUNTER 2024-12-01 14:30 | Inpatient (IN) | payer OTHER ==
[2024-12-01] MEDS: ELECTROLYTE-148 SOLN 500 ML IV SCH (15:15)
[2024-12-01 15:23] LABS: EOS % 3.5 % (0-4.5); HEMOGLOBIN 12.9 GM/dL (10.7-15.3); LYMPH % 26.2 % (8-40); MCHC 33.1 g/dl (32.0-36.0); MEAN CELL VOLUME 84.7 fl (80-96); MEAN PLT VOLUME 10.1 fl (7.5-11.1); MONO % 6.6 % (3.8-10.2); NEUT % 62.7 % (42.8-82.8); PLATELET COUNT 181 10^3/uL (134-434); RDW 14.9 % (11.6-15.6); WHITE BLOOD COUNT 8.8 K/mm3 (4.0-10.0)
[2024-12-01 15:30] LABS: INR 0.95 (0.83-1.09); PROTHROMBIN TIME (PATIENT) 10.5 SEC (9.7-13.0)
[2024-12-01 15:33] LABS: ACTIVATED PTT 22.8 SECONDS (25.2-36.5)
[2024-12-01 15:46] LABS: CHLORIDE 109 mmol/L (98-107); POTASSIUM 3.9 mmol/L (3.5-5.1); SODIUM 139 mmol/L (136-145)
[2024-12-01 15:48] LABS: ANION GAP 8 mmol/L (4-13); BLOOD UREA NITROGEN 13.2 mg/dL (7-18); CALCIUM 8.6 mg/dL (8.5-10.1); CO2 23 mmol/L (21-32); GLUCOSE,RANDOM 121 mg/dL (74-106)
[2024-12-01 15:52] LABS: CREATININE 0.5 mg/dL (0.55-1.3)
[2024-12-01] MEDS: ELECTROLYTE-148 SOLN 1,000 ML IV SCH (16:30)
[2024-12-01 17:35] VITALS: BMI 42.7
[2024-12-01 18:13] LABS: HIV INTERPRETATION NEGATIVE (NEGATIVE)
[2024-12-01] MEDS: CITRIC ACID/SODIUM CITRATE 30 ML UNIT-DOSE CUP PO ONE (20:15)
[2024-12-01] MEDS ORDERED: FENTANYL CITRATE/PF 50 MCG/ML VIAL ONE (20:58)
[2024-12-01] MEDS ORDERED: morphine SULFATE/PF 1 MG/2 ML (2cc Syringe - QUVA) ONE (20:58)
[2024-12-01 22:10] LABS: CORD HCO3 22.1 mmHg (20-29); CORD PCO2 48.2 mmHg (30-78); CORD pH 7.279 (7.14-7.44)
[2024-12-01 22:13] LABS: CORD BASE EXCESS -3.5 mmol/L (0-2); CORD HCO3 21.9 mmHg (20-29); CORD PCO2 40.8 mmHg (30-78); CORD pH 7.348 (7.14-7.44)
[2024-12-01] MEDS ORDERED: OXYTOCIN 20 UNITS in 0.9% NS 20 UNIT/1,000 ML INFUS.BAG IV ONE (22:14)
[2024-12-01] MEDS: OXYTOCIN 20 UNITS in 0.9% NS 20 UNIT/1,000 ML INFUS.BAG IV SCH (22:30)
[2024-12-01] MEDS ORDERED: METHYLERGONOVINE MALEATE 0.2 MG/1 ML AMP IM PRN (22:31)
[2024-12-01] MEDS ORDERED: ONDANSETRON 4 MG/2 ML VIAL ONE (22:41)
[2024-12-01] MEDS ORDERED: KETOROLAC TROMETHAMINE 30 MG/1 ML VIAL ONE (22:41)
[2024-12-01] MEDS ORDERED: DEXAMETHASONE SOD PHOSPHATE 4 MG/1 ML VIAL ONE (22:41)
[2024-12-02] MEDS ORDERED: ONDANSETRON 4 MG/2 ML VIAL ONE (00:36)
[2024-12-02] MEDS: ONDANSETRON 4 MG/2 ML VIAL IVPB PRN (00:41)
[2024-12-02] MEDS ORDERED: ACETAMINOPHEN INJECTION 100 ML ONE (01:00)
[2024-12-02] MEDS: ACETAMINOPHEN 1000 MG/100 ML BAG IVPB PRN (01:01)
[2024-12-02 07:14] LABS: BASO % 0.2 % (0-2.0); EOS % 0.1 % (0-4.5); HEMATOCRIT 37.5 % (32.4-45.2); HEMOGLOBIN 12.1 GM/dL (10.7-15.3); LYMPH % 9.7 % (8-40); MCH 27.3 pg (25.7-33.7); MCHC 32.2 g/dl (32.0-36.0); MEAN CELL VOLUME 84.8 fl (80-96); MEAN PLT VOLUME 10.3 fl (7.5-11.1); MONO % 5.1 % (3.8-10.2); NEUT % 84.9 % (42.8-82.8); PLATELET COUNT 160 10^3/uL (134-434); RBC 4.43 M/mm3 (3.60-5.2); RDW 14.8 % (11.6-15.6); WHITE BLOOD COUNT 14.6 K/mm3 (4.0-10.0)
[2024-12-02] MEDS: IBUPROFEN 800 MG/8 ML IJ IVPB PRN (08:43)
[2024-12-02] MEDS: DIPHTH,PERTUSS(ACELL),TET 0.5 ML DISP.SYRIN IM ONE (09:50)
[2024-12-02] MEDS: FLU VACCINE (FLULAVAL) PF 45 MCG/0.5 ML SYRINGE 2024-2025 IM ONE (09:52)
[2024-12-02] MEDS: IBUPROFEN 600 MG TABLET (FP) PO PRN (17:28)
[2024-12-02] MEDS: SIMETHICONE 80 MG TAB.CHEW (FP) PO PRN (20:05)
[2024-12-02] MEDS ORDERED: BISACODYL 10 MG SUPP.RECT RC PRN (22:31)
[2024-12-03] MEDS: oxyCODONE HCL 5 MG TABLET PO PRN ×2 (05:55→15:03)
[2024-12-03] MEDS: ACETAMINOPHEN 325 MG TABLET (FP) PO PRN (10:52)
[2024-12-04 06:01] LABS: BASO % 0.4 % (0-2.0); EOS % 2.9 % (0-4.5); HEMATOCRIT 34.4 % (32.4-45.2); HEMOGLOBIN 11.6 GM/dL (10.7-15.3); LYMPH % 23.5 % (8-40); MCH 28.3 pg (25.7-33.7); MCHC 33.6 g/dl (32.0-36.0); MEAN CELL VOLUME 84.3 fl (80-96); MEAN PLT VOLUME 9.7 fl (7.5-11.1); MONO % 10.2 % (3.8-10.2); PLATELET COUNT 179 10^3/uL (134-434); RBC 4.08 M/mm3 (3.60-5.2); RDW 15.3 % (11.6-15.6); WHITE BLOOD COUNT 8.9 K/mm3 (4.0-10.0)
[2024-12-04 06:15] VITALS: RESP 18
[2024-12-04 08:10] VITALS: BP 124/79; PULSE 99; TEMP 98.4
== END 2024-12-04 12:12 | disposition home or self-care (01) | DRG 540 ==
LOC: JLDR 14:30 → J3W 12-02 01:51
PROVIDERS: ADMIT Obstetrics & Gynecology Obstetrics; ATTEND Obstetrics & Gynecology Obstetrics
PROC: 10D00Z1 Extraction of Products of Conception, Low, Open Approach (ICD-10-PCS; principal; 2024-12-01)
DX: O36.5930 Maternal care for other known or suspected poor fetal growth, third trimester, not applicable or unspecified (principal); O32.1XX0 Maternal care for breech presentation, not applicable or unspecified; O10.92 Unspecified pre-existing hypertension complicating childbirth; Z3A.37 37 weeks gestation of pregnancy; Z37.0 Single live birth
CPT/HCPCS: 36415; 36600; 80048; 82803; 85025; 85610; 85730; 86780; 86850; 86900; 86901; 87389; 88307-TC; 90656; 90715; G0008; J0131

== ENCOUNTER 2024-12-14 12:42 | Emergency (ER) | payer OTHER ==
[2024-12-14 13:04] VITALS: BP 122/89; PULSE 89; RESP 16; TEMP 98.5; BMI 41.7
== END 2024-12-14 14:22 | disposition home or self-care (01) ==
LOC: JER 12:42
DX: O90.0 Disruption of cesarean delivery wound (principal); L03.311 Cellulitis of abdominal wall
CPT/HCPCS: 87070; 87076; 87186; 87205; 99283-25